=== PATIENT | male | born 1950 | race Caucasian/White ===

== ENCOUNTER → 2019-02-02 | Outpatient (REF) | payer BC, MEDICARE ==
[~2019-02-02] MED LIST: ATOR1TAB19 PO; ECOT81TA5 PO; FLOM0.4C39 PO; IBUP-1114 PO; LEVO200T4 PO; LOSA50TA5 PO; METF500T13 PO; TIMO0.5S42 OD; XALA0.007 OD
[2019-02-02 14:09] LABS: APPEARANCE, URINE CLEAR (CLEAR); BACTERIA, URINE AUTO NEGATIVE (NEGATIVE); BILIRUBIN, URINE AUTO NEGATIVE (NEGATIVE); BLOOD, URINE BLOOD 3+ (NEGATIVE); COLOR, URINE YELLOW (YELLOW); GLUCOSE, URINE (UA) AUTO 1+ mg/dL (NEGATIVE); KETONE, URINE AUTO NEGATIVE (NEGATIVE); LEUKOCYTE ESTERASE, URINE AUTO NEGATIVE (NEGATIVE); NITRITE, URINE AUTO NEGATIVE (NEGATIVE); PROTEIN, URINE AUTO NEGATIVE (NEGATIVE); RBC, URINE AUTO 57 /HPF (0-3); SPECIFIC GRAVITY URINE AUTO 1.014 (1.002-1.035); SQUAMOUS EPITHELIAL CELL UR AU 0 /HPF (0-6); UROBILINOGEN, URINE AUTO 0.2 mg/dL (0.0-2.0); WBC, URINE AUTO 2 /HPF (0-3)
== END ==
LOC: M SMT 13:05
PROVIDERS: ATTEND Nurse Practitioner Women's Health
DX: N13.39 Other hydronephrosis (principal); N32.89 Other specified disorders of bladder; Z79.899 Other long term (current) drug therapy
CPT/HCPCS: 81001; 87086; G0463

== ENCOUNTER 2019-03-16 11:41 | Day surgery (SDC) | payer MEDICARE ==
[~2019-03-16] VITALS: Ht 177.8 cm; Wt 126.6 kg
[~2019-03-16 11:41] MED LIST changes: +LR 1,000 ML IV ONE; +LevoFLOXacin IV 500 MG in IV 1 EA IV ONE
[2019-03-16] MEDS ORDERED: PANT40TA3 PO (12:26)
[2019-03-16] MEDS ORDERED: dexameTHASONE 4 MG/ML 1ML VIAL (J1100) As Ordered ONE (14:22)
[2019-03-16] MEDS ORDERED: propofoL 200 MG/20 ML VIAL As Ordered ONE (14:22)
[2019-03-16] MEDS ORDERED: ONDANSETRON 4MG/2ML VIAL (J2405) As Ordered ONE ×2 (14:22→16:41)
[2019-03-16] MEDS ORDERED: ROCURONIUM BROMIDE 50 MG/5 ML VIAL As Ordered ONE ×3 (14:22→18:28)
[2019-03-16] MEDS ORDERED: LIDOCAINE 2% INJ 100 MG/5 ML SDV (FOR ANES.) As Ordered ONE (14:22)
[2019-03-16] MEDS ORDERED: fentaNYL 250 MCG/5 ML INJECTION (J3010) As Ordered ONE (14:23)
[2019-03-16] MEDS ORDERED: MIDAZOLAM INJ 2 MG/2 ML VIAL (J2250) As Ordered ONE ×2 (14:23→16:14)
[2019-03-16] MEDS ORDERED: CONRAY-60 60% 50ML VIAL (Q9961) As Ordered ONE (16:10)
[2019-03-16] MEDS ORDERED: PHENYLephrine HCL 500 MCG/5 ML (100MCG/ML) SYRINGE (J2370) As Ordered ONE (16:36)
[2019-03-16] MEDS ORDERED: SUGAMMADEX SODIUM 500 MG/5 ML VIAL (BRIDION) As Ordered ONE (16:41)
[2019-03-16] MEDS ORDERED: ePHEDrine SULFATE 25 MG/5 ML(5MG/ML) SYRINGE As Ordered ONE (16:52)
[2019-03-16] MEDS ORDERED: PHENYLEPHRINE INJ 10MG/ML VIAL (J2370) As Ordered ONE (17:22)
[2019-03-16] MEDS ORDERED: FUROSEMIDE 100 MG/10 ML VIAL (J1940) As Ordered ONE (18:56)
[2019-03-16] MEDS ORDERED: HYDROMORPHONE HCL 0.5 MG/ 0.5 ML SYRINGE (J1170 PER 1) IV PRN (20:15)
[2019-03-16] MEDS ORDERED: PERCOCET 5MG/325MG TAB PO PRN (20:15)
[2019-03-16] MEDS ORDERED: LR 1,000 ML IV SCH (20:15)
[2019-03-16] MEDS ORDERED: oxyCODONE 5MG TAB PO PRN (20:15)
[2019-03-16] MEDS ORDERED: ONDANSETRON 4MG/2ML VIAL (J2405) IV PRN (20:15)
[2019-03-16] MEDS ORDERED: fentaNYL 100 MCG/2 ML INJECTION (J3010) IV PRN (20:15)
[2019-03-16 21:50] VITALS: BP 161/78
--- NOTE | 2019-03-16 23:37 | RO ---
DATE OF PROCEDURE: 03/16/2019 PREPROCEDURE DIAGNOSIS: Bladder stone, right ureteral stones. POSTPROCEDURE DIAGNOSIS: Bladder stone, right ureteral stones. PROCEDURE: Cystoscopy, laser cystolitholapaxy, right ureteroscopy with laser lithotripsy and basket extraction of stones, right retrograde pyelogram with intraoperative interpretation of images, right ureteral stent placement. SURGEON: Franki Bland MD HOUSEKEEPER/LAUNDRY ASSISTANT: None. ANESTHESIA: General. OPERATIVE INDICATIONS: This is a 68-year-old male who was found to have a large bladder stone as well as several right ureteral stones on CAT scan. He was brought to the operating room today for the above listed procedure. DESCRIPTION OF PROCEDURE: The patient was brought to the operating room and general anesthesia induced. Prophylactic antibiotics were infused. He was then placed in the dorsal lithotomy position and prepped and draped in the usual sterile fashion. At this point, a resectoscope was inserted into the urethral meatus and advanced into the bladder. Once inside the bladder, the large bladder stone was seen. At this point, a 1000 micron laser fiber was utilized to fragment the stone into smaller pieces. Once this was done, all the fragments were removed from the bladder using the [employer]IA (formerly known as [employer]) evacuator. Once satisfied all the stone fragments had been removed from the bladder, a guidewire was advanced up the right collecting system. I then went up the right collecting system with a short semi-rigid ureteroscope and lining the distal to mid ureter several large stones measuring up to a centimeter in size each were seen. I then utilized a 200 micron laser fiber to fragment the stones into smaller pieces. I then utilized a basket to remove the fragments from the ureter. Once done, only tiny stone debris was seen lining the distal to mid ureter. A retrograde pyelogram was then performed. It was notable for severe right hydronephrosis, no extravasation. I then utilized the wire to advance a 7-Serbian x 22-32 JJ ureteral stent up to the right collecting system. The wire was removed, and there were adequate curls of the stent in the right renal pelvis and in the bladder. At this point, an 18-Serbian Farley catheter was inserted into the bladder, and the balloon was filled with 10 mL of sterile water. The catheter was connected to gravity drainage, and this marked the conclusion of the procedure. The patient was then taken out of the dorsal lithotomy position, awakened from anesthesia and transported to the recovery room in stable condition. Estimated blood loss: 25 mL. Complications: None. Specimens: Bladder stone fragments, right ureteral stone fragments. PLAN: The patient will followup in the clinic in 2-3 days for catheter removal. He will followup in approximately 3-4 weeks for stent removal. I will get a KUB prior to removing the stent.
--- NOTE | 2019-03-17 07:15 | REP ---
RETROGRADE PYELOGRAM: Two views. HISTORY: Cystoscopy. 17 seconds of fluoroscopy time is reported. FINDINGS: A sequence of two last image hold fluoroscopically obtained spot radiographs of the right abdomen document right ureteral cannulation, contrast injection, hydronephrosis, and double pigtail ureteral stent placement. Electronically Signed by Jorge Camilo MD 03/17/2019 08:16 A
== END 2019-03-16 20:10 | disposition home or self-care (01) ==
LOC: M SDC 11:41
PROVIDERS: ATTEND Urology
DX: N21.0 Calculus in bladder (principal); N20.1 Calculus of ureter; I10 Essential (primary) hypertension; E78.5 Hyperlipidemia, unspecified; E11.9 Type 2 diabetes mellitus without complications; E03.9 Hypothyroidism, unspecified; J44.9 Chronic obstructive pulmonary disease, unspecified; Z79.82 Long term (current) use of aspirin; Z79.84 Long term (current) use of oral hypoglycemic drugs; Z79.899 Other long term (current) drug therapy; Z87.891 Personal history of nicotine dependence
CPT/HCPCS: 52318; 52356; 74420; 82360; 88300; C1769; C2617; J1100; J1940; J1956; J2250; J2370; J2405; J3010; Q9961

== ENCOUNTER → 2019-10-16 | Outpatient (CLI) | payer MEDICARE ==
[~2019-10-16] MED LIST changes: -LR 1,000 ML IV ONE; -LevoFLOXacin IV 500 MG in IV 1 EA IV ONE; +PANT40TA29 PO
[2019-10-16 19:23] LABS: APPEARANCE, URINE CLEAR (CLEAR); BACTERIA, URINE AUTO NEGATIVE (NEGATIVE); BILIRUBIN, URINE AUTO NEGATIVE (NEGATIVE); BLOOD, URINE BLOOD NEGATIVE (NEGATIVE); COLOR, URINE YELLOW (YELLOW); GLUCOSE, URINE (UA) AUTO 1+ mg/dL (NEGATIVE); KETONE, URINE AUTO NEGATIVE (NEGATIVE); LEUKOCYTE ESTERASE, URINE AUTO NEGATIVE (NEGATIVE); NITRITE, URINE AUTO NEGATIVE (NEGATIVE); PROTEIN, URINE AUTO NEGATIVE (NEGATIVE); RBC, URINE AUTO 0 /HPF (0-3); SPECIFIC GRAVITY URINE AUTO 1.015 (1.002-1.035); SQUAMOUS EPITHELIAL CELL UR AU 0 /HPF (0-6); UROBILINOGEN, URINE AUTO 0.2 mg/dL (0.0-2.0); WBC, URINE AUTO 0 /HPF (0-3)
[2019-10-28 15:08] LABS: Amm Acid Urate 6 % (.); Ca Ox Monohydrate 3 % (.); Size 6x5 mm (.); Uric Acid 91 % (.)
--- NOTE | 2019-11-10 13:17 | REPPI ---
ABDOMINAL RADIOGRAPHS CLINICAL: Kidney and bladder calculus. TECHNIQUE: Two supine views of the abdomen and pelvis. FINDINGS: Evaluation of the urinary tract system is limited by overlying bowel gas and presumed phlebolith. Urinary tract calcifications cannot be excluded. Evidence for prior cholecystectomy. The bowel gas pattern is nonspecific, although mild fecal stasis cannot be excluded. Skeletal structures demonstrate age-related changes. IMPRESSION: Limited examination. Cannot exclude urinary tract calcifications based on current exam. MTDD
== END ==
LOC: M PLAIMG 14:33
PROVIDERS: ATTEND Nurse Practitioner Family
DX: N20.0 Calculus of kidney (principal); N21.0 Calculus in bladder; Z90.49 Acquired absence of other specified parts of digestive tract
CPT/HCPCS: 51798; 74018; 81000; 81001; 82365; 87086; G0463

== ENCOUNTER → 2021-11-28 | Outpatient (CLI) | payer MEDICARE ==
[~2021-11-28] MED LIST changes: +AMLO1TAB24 PO; +FLUT1BLS4; +GLIM1TAB4 PO; +LOSA100T5 PO; +METO1TAB32; +SYNT175T2 PO
== END ==
LOC: M ONCR 14:59
PROVIDERS: ATTEND General Practice
DX: C20 Malignant neoplasm of rectum (principal); K62.89 Other specified diseases of anus and rectum; I10 Essential (primary) hypertension; E11.9 Type 2 diabetes mellitus without complications; E78.00 Pure hypercholesterolemia, unspecified; N20.0 Calculus of kidney; R10.9 Unspecified abdominal pain; Z90.49 Acquired absence of other specified parts of digestive tract; Z79.84 Long term (current) use of oral hypoglycemic drugs; Z79.899 Other long term (current) drug therapy
CPT/HCPCS: 36415; 87635; G0463

== ENCOUNTER → 2021-11-29 | Outpatient (CLI) | payer MEDICARE ==
[~2021-11-29] MED LIST changes: +LIDOCAINE 1% MDV 20ML VIAL As Ordered ONE; +MIDAZOLAM INJ 2MG/2ML VIAL (J2250 PER 1MG) As Ordered ONE; +NS 1,000 ML IV SCH; +PROMETHAZINE 25MG/ML 1ML VIAL As Ordered ONE; +ceFAZolin 2 GM/D5W 50 ML IV BAG (J0690 PER 500MG) As Ordered ONE; +ceFAZolin SOD 2 GM in IV 1 EA IV ONE; +diphenhydrAMINE 50MG/ML VIAL (J1200) As Ordered ONE; +fentaNYL 100 MCG/2 ML INJECTION As Ordered ONE
[2021-11-29 11:00] VITALS: BP 119/56
== END ==
LOC: M IRPRO 07:14
PROVIDERS: ATTEND Internal Medicine Hematology & Oncology
DX: C20 Malignant neoplasm of rectum (principal)
CPT/HCPCS: 36561; 99152; 99153; C1769; C1788; C1894; J0690; J1200; J1642; J1644; J2250; J2550; J3010

== ENCOUNTER 2021-12-06 14:10 | Outpatient (RCR) | payer MEDICARE ==
[~2021-12-06 14:10] MED LIST changes: -LIDOCAINE 1% MDV 20ML VIAL As Ordered ONE; -MIDAZOLAM INJ 2MG/2ML VIAL (J2250 PER 1MG) As Ordered ONE; -NS 1,000 ML IV SCH; -PROMETHAZINE 25MG/ML 1ML VIAL As Ordered ONE; -ceFAZolin 2 GM/D5W 50 ML IV BAG (J0690 PER 500MG) As Ordered ONE; -ceFAZolin SOD 2 GM in IV 1 EA IV ONE; -diphenhydrAMINE 50MG/ML VIAL (J1200) As Ordered ONE; -fentaNYL 100 MCG/2 ML INJECTION As Ordered ONE
[2021-12-07] MEDS ORDERED: CAPE1TAB2 PO (08:54)
[2021-12-13] MEDS ORDERED: CAPE1TAB2 PO (11:32)
[2021-12-14] MEDS ORDERED: CAPE1TAB2 PO (14:42)
== END 2021-12-11 ==
LOC: M ONCR 14:10
PROVIDERS: ATTEND General Practice
DX: C20 Malignant neoplasm of rectum (principal)

== ENCOUNTER → 2022-01-09 | Outpatient (POV) | payer MEDICARE ==
[~2022-01-09] VITALS: Ht 177.8 cm; Wt 118.6 kg
[~2022-01-09] MED LIST changes: +CAPE1TAB2 PO; +SILV1CRE60 TOP
[2022-01-09 12:40] VITALS: BP 137/65
== END ==
LOC: M IRPOV 11:55
PROVIDERS: ATTEND Radiology Diagnostic Radiology
DX: Z45.2 Encounter for adjustment and management of vascular access device (principal)

== ENCOUNTER 2022-01-10 11:25 | Outpatient (RCR) | payer MEDICARE ==
[2022-01-15] MEDS ORDERED: LIDO4CRE4 TOP (12:04)
== END 2022-01-10 23:59 | disposition home or self-care (01) ==
LOC: M ONCR 11:25
PROVIDERS: ATTEND General Practice
DX: C20 Malignant neoplasm of rectum (principal)

== ENCOUNTER 2022-02-01 14:51 | Outpatient (RCR) | payer MEDICARE ==
[~2022-02-01 14:51] MED LIST changes: +LIDO4CRE4 TOP
[2022-02-14] MEDS ORDERED: SILV1CRE60 TOP (11:47)
[2022-02-14] MEDS ORDERED: FERR325T3 PO (11:53)
== END 2022-02-10 ==
LOC: M ONCR 14:51
PROVIDERS: ATTEND General Practice
DX: C20 Malignant neoplasm of rectum (principal)

== ENCOUNTER → 2022-02-22 | Outpatient (CLI) | payer MEDICARE ==
[~2022-02-22] MED LIST changes: +FERR325T3 PO
== END ==
LOC: M ONCR 13:48
PROVIDERS: ATTEND Radiology Radiation Oncology
DX: C20 Malignant neoplasm of rectum (principal); Z79.890 Hormone replacement therapy; Z87.891 Personal history of nicotine dependence; Z92.3 Personal history of irradiation

== ENCOUNTER → 2022-08-22 | Outpatient (CLI) | payer MEDICARE ==
[~2022-08-22] MED LIST changes: +BUPR150T12 PO; +CEPH500T PO; +ELIQ5TAB PO; -FLUT1BLS4; +FLUT1BLS4 INH; +GABA-282 PO; -METO1TAB32; +METO1TAB32 PO; +ONDA-84 PO; +POTA-165 PO; +PROC10TA5 PO; +VITACAP8 PO
== END ==
LOC: M ONCR 12:53
PROVIDERS: ATTEND General Practice
DX: C20 Malignant neoplasm of rectum (principal); G56.93 Unspecified mononeuropathy of bilateral upper limbs; Z71.2 Person consulting for explanation of examination or test findings; Z79.84 Long term (current) use of oral hypoglycemic drugs; Z79.890 Hormone replacement therapy; Z79.899 Other long term (current) drug therapy; Z87.891 Personal history of nicotine dependence; Z92.21 Personal history of antineoplastic chemotherapy; Z92.3 Personal history of irradiation

== ENCOUNTER → 2022-11-22 | Outpatient (CLI) | payer MEDICARE ==
[~2022-11-22] MED LIST changes: +ELIQ5TAB
== END ==
LOC: M ONCR 14:27
PROVIDERS: ATTEND General Practice
DX: C20 Malignant neoplasm of rectum (principal); N31.9 Neuromuscular dysfunction of bladder, unspecified; G62.9 Polyneuropathy, unspecified; Z71.2 Person consulting for explanation of examination or test findings; Z79.01 Long term (current) use of anticoagulants; Z79.84 Long term (current) use of oral hypoglycemic drugs; Z79.890 Hormone replacement therapy; Z79.891 Long term (current) use of opiate analgesic; Z79.899 Other long term (current) drug therapy; Z87.891 Personal history of nicotine dependence; Z92.21 Personal history of antineoplastic chemotherapy; Z92.3 Personal history of irradiation; Z93.3 Colostomy status

== ENCOUNTER → 2023-11-22 | Outpatient (CLI) | payer MEDICARE ==
[~2023-11-22] MED LIST changes: +ACET-1349 PO; +ELIQ2.5T PO; +GABA-1172 PO; -GABA-282 PO; -GLIM1TAB4 PO; +GLIM1TAB84 PO; +PREG25CA PO
== END ==
LOC: M ONCR 12:46
PROVIDERS: ATTEND General Practice
DX: C20 Malignant neoplasm of rectum (principal); N31.8 Other neuromuscular dysfunction of bladder; G60.9 Hereditary and idiopathic neuropathy, unspecified; Z79.01 Long term (current) use of anticoagulants; Z79.890 Hormone replacement therapy; Z79.84 Long term (current) use of oral hypoglycemic drugs; Z79.899 Other long term (current) drug therapy; Z87.891 Personal history of nicotine dependence; Z92.21 Personal history of antineoplastic chemotherapy; Z92.3 Personal history of irradiation

== ENCOUNTER → 2024-11-20 | Outpatient (CLI) | payer MEDICARE ==
[~2024-11-20] MED LIST changes: +CELE0.09 PO; -FLOM0.4C39 PO; +GLIM2TAB29; +JARD1TAB; +LEVO1TAB40 PO; -LIDO4CRE4 TOP; +LIDO5CRE7 TOP; -PREG25CA PO; +PREG25CA63 PO; +TAMS-18 PO
== END ==
LOC: M ONCR 12:41
PROVIDERS: ATTEND General Practice
DX: Z08 Encounter for follow-up examination after completed treatment for malignant neoplasm (principal); Z85.040 Personal history of malignant carcinoid tumor of rectum; N31.9 Neuromuscular dysfunction of bladder, unspecified; R32 Unspecified urinary incontinence; Z92.21 Personal history of antineoplastic chemotherapy; Z92.3 Personal history of irradiation; Z87.891 Personal history of nicotine dependence; Z79.1 Long term (current) use of non-steroidal anti-inflammatories (NSAID); Z79.84 Long term (current) use of oral hypoglycemic drugs; Z79.899 Other long term (current) drug therapy; Z79.01 Long term (current) use of anticoagulants

== ENCOUNTER → 2025-01-15 | Outpatient (REF) | payer MEDICARE ==
[2025-01-15 14:13] LABS: APPEARANCE, URINE TURBID (CLEAR); BACTERIA, URINE AUTO 1+ (NEGATIVE); BILIRUBIN, URINE AUTO NEGATIVE (NEGATIVE); BLOOD, URINE BLOOD 1+ (NEGATIVE); GLUCOSE, URINE (UA) AUTO NEGATIVE (NEGATIVE); KETONE, URINE AUTO NEGATIVE (NEGATIVE); LEUKOCYTE ESTERASE, URINE AUTO 2+ (NEGATIVE); NITRITE, URINE AUTO NEGATIVE (NEGATIVE); PROTEIN, URINE AUTO 1+ mg/dL (NEGATIVE); RBC, URINE AUTO 61 /HPF (0-3); SPECIFIC GRAVITY URINE AUTO 1.017 (1.002-1.035); SQUAMOUS EPITHELIAL CELL UR AU 0 /HPF (0-6); UROBILINOGEN, URINE AUTO 0.2 mg/dL (0.0-2.0); WBC, URINE AUTO TNTC /HPF (0-3)
== END ==
LOC: M SMT 13:12
PROVIDERS: ATTEND Nurse Practitioner Family
DX: N39.46 Mixed incontinence (principal)

== ENCOUNTER → 2025-01-22 | Outpatient (REF) | payer MEDICARE ==
[2025-01-22 13:28] LABS: APPEARANCE, URINE CLOUDY (CLEAR); BACTERIA, URINE AUTO 1+ (NEGATIVE); BILIRUBIN, URINE AUTO NEGATIVE (NEGATIVE); BLOOD, URINE BLOOD 1+ (NEGATIVE); GLUCOSE, URINE (UA) AUTO NEGATIVE (NEGATIVE); KETONE, URINE AUTO NEGATIVE (NEGATIVE); LEUKOCYTE ESTERASE, URINE AUTO 2+ (NEGATIVE); MUCUS, URINE SMALL (NEGATIVE); NITRITE, URINE AUTO NEGATIVE (NEGATIVE); PROTEIN, URINE AUTO 1+ mg/dL (NEGATIVE); RBC, URINE AUTO 15 /HPF (0-3); SPECIFIC GRAVITY URINE AUTO 1.017 (1.002-1.035); SQUAMOUS EPITHELIAL CELL UR AU 0 /HPF (0-6); UROBILINOGEN, URINE AUTO 0.2 mg/dL (0.0-2.0); WBC, URINE AUTO TNTC /HPF (0-3)
== END ==
LOC: M SMT 13:04
PROVIDERS: ATTEND Nurse Practitioner Family
DX: Z87.440 Personal history of urinary (tract) infections (principal); N39.46 Mixed incontinence